=== PATIENT | female | born 1980 | race Caucasian/White ===

== ENCOUNTER → 2016-03-06 | Outpatient (CLI) | payer MEDICAID ==
--- NOTE | 2016-03-06 11:30 | NOWCEV ---
[facility] EVALUATION AND LETTER OF JUSTIFICATION Patient Name: GISSELLE DACOSTA Physician: Hayley Napoles MD Eval Date: 03/06/16 Therapist: Jess Nolan MS,PT Date of : 1980 MR#: [id number] Contact: Emily Dacosta Subscriber: GISSELLE DACOSTA Primary Ins: [employer] Subscriber #: [id number] EVALUATION FINDINGS Medical history - Gisselle is a 35y/o female with a diagnosis of hyperekplexia which causes exaggerated startle reactions and increased muscle tone with startle. She also has a PMH significant for a AVM rupture in 1996 and Hodgkin' s lymphoma in 2000. Gisselle has been utilizing a ultra light weight MWC since 1997. Her current MWC is in disrepair and is no longer meeting her needs. She was referred to this clinic by her doctor to have recommendation made for the most appropriate MWC to meet her needs. Functional Mobility - Gisselle is independent with self propulsion of her ultra light weight MWC on level surfaces with use of B UEs. She can self propel her chair up/down ramps and over unlevel surfaces with supervision. Gisselle does not ambulate or execute any functional tasks from a standing position. This is because she experiences frequent, unpredictable startle reactions during which she is unable to control her body and falls. This occurs even with an AD. Prior to 1997 Gisselle had been ambulating intermittently with assistance from her family, but she was falling frequently and having to take frequent trips to the emergency room. 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 When Gisselle is in her home and moving without her MWC she scoots on the floor in a seated position. Gisselle is able to perform transfers independently to/from her MWC with significant UE support for balance and ankle braces to prevent injury if she startles and falls during the transition. Gisselle is able to perform bed mobility independently. Head/Trunk control - Shais head control is WNL. She is able to sit unsupported but with significant posterior pelvic tilt. She is unable to control the movements in her trunk during a startle reaction. Motor involvement - Gisselle's function is significantly limited by her hyperekplexia and her exaggerated startle response. She has increased tone to passive movement in her LLE compared to her R. Her motor patterns and balance reactions are extremely impaired. She does not demonstrate effective corrective postural responses from her ankle, hips or trunk in standing. She is unable to control her body during a startle reaction. She reports that the startle response causes increase tone in her muscles and intermittent ballistic movements of her extremities. Gisselle demonstrate 4/5 strength throughout major muscle groups in her UEs and LEs, but she is unable to control her movements during startle. She reports that the startle reactions can occur several times a day. Posture - Gisselle sits with a significant posterior pelvic tilt and thoracic kyphosis, where her pelvis is significantly anterior to her shoulders. In unsupported sitting she elevates her R shoulder and leans slightly to the L. In her chair she sits with her knee flexed to less than 90degrees, so her feet frequently come forward off her foot plates. Skin Sensation - Gisselle's sensation is intact to light touch and she does not have any history of skin breakdown. Endurance - Gisselle can be in her chair for >6 hours a day when at her day program ADLs - Gisselle is I with ADLs from a wheelchair level. She is able to transfers independently to/from her chair to the toilet when at her day program. Cognitive/Social - Gisselle lives in a single story home with her parents who are her primary caretakers. She attends a day program 5 days a week for 6 hours a day. With the day program she is able to access the community in her MW. Current wheelchair - Gisselle currently utilizes an ultra light weight MWC which is 6 years old and is in disrepair from years of daily use and being moved in/ out of a vehicle. The frame of the chair is torqued so it is difficult for Gisselle to lock her wheels and the arm rests no longer latch down appropriately. Additionally, the sling back on the chair does not provide the postural support needed to optimize Gisselle's posture and propulsion. MEDICAL and FUNCTIONAL NEED/OBJECTIVES * To replace Gisselle's current ultra light weight MWC and seating system to continue to her allow her safe and independent access to her day program and community. EQUIPMENT RECOMMENDATIONS AND JUSTIFICATIONS The following recommendations are believed to be the most cost effective way to meet the patients medical and functional needs. * Ultra light weight MWC: Needed to replace Gisselle's current ultra light weight MWC which is 6 years old and is showing age related deterioration. This is necessary to allow Gisselle to access her day program and the community. A standard weight chair is not appropriate as Gisselle would not be able to self propel the chair up/down ramps or on unlevel surfaces. Gisselle cannot safely ambulate, even with an AD due to her hyperekplexia which places her at significant risk for fall and injury. Gisselle is able to independently transfer to/from her chair with UE support. She is able to self propel an ultra light weight chair independently to access her day program and ADLs such as toileting and is able to propel with supervision in the community. * Skin protection positioning cushion: Needed to provide Gisselle appropriate pressure distribution as she can be in her chair for >6hours a day. Additionally it is necessary that Gisselle's cushion supports her pelvis in a neutral position to prevent her from sliding forward in her chair due to her posterior pelvic tilt. Maintaining optimal posture will allow her to maintain independence with self propulsion and will keep her from sliding further forward in the chair when she experiences a startle reaction. An off the shelf cushion is not appropriate because is would not stabilize her pelvis and cause her to slide forward during an uncontrolled startle reactions, which would put her safety at risk. * Posterior positioning backrest: Needed to work in conjunction with Gisselle's seat cushion to allow her to maintain upright posture during self propulsion and when performing ADLs. A sling back causes Gisselle to sit with a significant forward posture causing her hips to slide forward in the chair, limiting her propulsion strategy. * Angle adjustable flip up foot plates: Needed to provide Gisselle with support for her LEs when she is performing ADLs and propelling in her chair. The angle adjustable foot plates are needed so that Gisselle's feet are maintained on the footplates as she keeps her knees bent to less than 90degress. Without this her feet fall forward off her foot plates. Having appropriate LE support is important to maintain her posture in her chair, especially when she is having an uncontrolled startle response. * Desk length flip up arm rests: Needed so that Gisselle can pull closely up to counters and surfaces in order to participate in activities at her day program. * Soft roll casters: Needed to so that Gisselle can independently propel her chair over unlevel surfaces in the community. The larger otf size will prevent her chair from getting caught and decrease chance of triggering a startle reaction. * Anti-tippers: Needed to prevent Gisselle's chair from flipping backwards specifically when she has a startle reaction as she can move in exaggerated ballistic patterns. * Airless tire inserts: Needed to prevent Gisselle from getting flat tires when she is at her day program or in the community as she is not able to perform maintenance or fix a flat tire due to her physical limitations. * Seat belt: Needed to keep Gisselle seated in her chair during a startle reaction during which she is unable to control her movements. Additionally it will help to stabilize her pelvis to prevent it from sliding forward when seat and propelling in her chair. These recommendations are based on the likelihood that Gisselle will require the use of a wheelchair for mobility for the rest of her life. If you have any questions or concerns regarding the stated recommendations, please feel free to contact the therapist at . Thank you for your cooperation in obtaining the necessary equipment for this patient. ABHI Ro
== END ==
PROVIDERS: ATTEND Family Medicine
DX: R29.2 Abnormal reflex (principal); Z46.89 Encounter for fitting and adjustment of other specified devices
CPT/HCPCS: 97162-GP

== ENCOUNTER → 2017-03-11 | Outpatient (CLI) | payer OTHER, MEDICAID | LOC: FIMAGING 08:45 | PROVIDERS: ATTEND Family Medicine | DX: Z12.31 Encounter for screening mammogram for malignant neoplasm of breast (principal); Z80.3 Family history of malignant neoplasm of breast ==

== ENCOUNTER → 2018-04-01 | Outpatient (CLI) | payer OTHER, MEDICAID | LOC: FIMAGING 09:49 | PROVIDERS: ATTEND Family Medicine | DX: Z12.31 Encounter for screening mammogram for malignant neoplasm of breast (principal); Z80.3 Family history of malignant neoplasm of breast ==